=== PATIENT | male | born 1965 | race Caucasian/White ===

== ENCOUNTER 2021-10-22 05:53 | Emergency (ER) | payer MEDICARE, MEDICAID, SELFPAY ==
[2021-10-22 06:04] VITALS: BP 150/70; PULSE 101; O2SAT 98; BMI 27.3
[2021-10-22 06:13] VITALS: BP 133/77; PULSE 77; RESP 16; TEMP 36.5; O2SAT 98
--- NOTE | 2021-10-22 07:48 | ED_ITS ---
HPI - Alcohol General Chief Complaint: ETOH/Substance Use Stated Complaint: ETOH Time Seen by Provider: 10/22/21 07:43 Source: EMS Mode of arrival: ambulatory Limitations: altered mental status History of Present Illness HPI narrative: 55-year-old male brought to emergency department by ambulance for evaluation of altered mental status. The patient was found in a car in a local convenience store parking lot. Patient was unresponsive. On presentation, the patient is arousable but falls back asleep. He was unable answer questions. there is a strong odor of alcohol on his breath. The patient has not been here before and I have no other information on the patient at this time. 1506: The patient is more awake and was able to give me a history. He states that he is in a Suboxone clinic and that is the only medicine he takes. Patient states that he gets counseling through [facility] for his opiate use disorder. He states that he has a history of using oxycodone. He denied using oxycodone. He did have an empty bottle of fluolprazolam which is a roller coaster designer drugs that is not marked his but is similar to a benzodiazepine. He states he takes his medication occasionally for anxiety. Patient was also found to have a glass pipe and a crystal-like substance which is consistent with crystal methamphe tamine. This medication was confiscated by the guard in the emergency department. Related Data Allergies Allergy/AdvReac Type Severity Reaction Status Date / Time No Known Allergies Allergy Verified 10/22/21 07:48 Review of Systems Review of Systems: Yes Unobtainable due to mental status PMFSH Social History Social History Alcohol intake: current Patient Tobacco Use Status: Tobacco use Unknown Use of substances other than those prescribed or required for medical reasons: Unknown Advance Directives: No Advance Directives Information Provided: No Physical Exam ED Vital Signs: Vital Signs - 24 hr 10/22/21 06:13 10/22/21 08:36 Temperature 97.7 F Pulse Rate 77 74 Respiratory Rate 16 14 Blood Pressure 133/77 119/56 L Pulse Oximetry 98 98 Oxygen Delivery Method Room Air BMI result Body Mass Index 27.3 Const Other: Lethargic but arousable, falls back asleep after stimulation, does have a strong odor of alcohol on his breath HENMT Head: Yes normal to inspection, Yes normocephalic and Yes atraumatic Ears: external ears normal General nose exam: Normal external nose present Face and sinus: Yes normal facial exam Mouth: Normal oral and palatal mucosa present Throat: Yes posterior oropharynx normal Eyes General: appearance normal, both eyes and all related structures Neck Neck: Yes normal visual inspection, Yes no lymphadenopathy, Yes trachea midline and Yes supple Chest Chest palpation & inspection: normal inspection of the chest and normal palpation of entire chest wall Resp Effort & Inspection: normal respiratory effort and able to speak in complete sentences Auscultation: clear to auscultation bilaterally Cardio Rate: regular rate Rhythm: regular rhythm Heart sounds: S1 normal heart sound present, S2 normal heart sound present and no murmurs GI Inspection: Yes normal to inspection Palpation (GI): Soft to palpation, nontender and no guarding Auscultation: normal bowel sounds General: Yes no CVA tenderness Back/Spine/Pelvis Back: no CVA tenderness Skin General skin exam: no rashes or lesions noted Neuro Other: lethargic but arousable Extrem General: Yes normal to inspection Course Course Course Narrative: 55-year-old male who presents emergency department for evaluation of altered level of consciousness, found unresponsive in a car. The patient was found to have a bottle of a drug but has not marked in the it states (flualprazolam) which is a benzodiazepine and with a crystal like substance which I suspect is consistent with Chrismethamphetamine. The patient was placed on a laboratory monitor and O2 saturation monitor will be observed until he wakes up. I did order laboratory evaluation to include CBC, CMP, ETOH level, urine drug screen. 1515: The patient is awake and alert. He was able to drink gerardo zamzam and eating food. He did tell me that he is in a Suboxone program and get counseling through [facility] and he is trying to work on his issues. I suspect that the patient's altered mental status was related to taking a roller coaster designer drug that is similar to a benzodiazepine and and secondary to smoke crystal methamphetamine. I did offer crisis counseling and a SUDE evaluation but he states that he is getting help with his addiction through [facility]. therefore the patient will be discharged home MDM - Alcohol Lab Data Result diagrams: 10/22/21 08:21 10/22/21 08:25 Labs: Lab Results 10/22/21 10/22/21 10/22/21 Range/Units 08:21 08:21 08:25 WBC 10.9 H (4.8-10.8) X10*3/uL RBC 4.86 (4.60-5.80) X10*6/uL Hgb 15.8 (14.0-18.0) g/dl Hct 47.9 (42.0-52.0) % MCV 98.6 H (80.0-98.0) fL MCH 32.5 (27.0-33.0) pg MCHC 33.0 (31.0-36.0) g/dl RDW 13.2 (11.0-16.0) % Plt Count 328 (160-400) X10*3/uL MPV 8.8 L (9.4-12.4) fL Immature Gran % (Auto) 0.5 H (0.0-0.4) % Neut % (Auto) 72.0 (45-73) % Lymph % (Auto) 16.1 L (20-40) % Andrew % (Auto) 9.4 (2-11) % Eos % (Auto) 1.6 (0-4) % Baso % (Auto) 0.4 (0-2) % Lymph # (Auto) 1.8 (1.2-4.9) X10*3/uL Andrew # (Auto) 1.0 (0.1-1.2) X10*3/uL Eos # (Auto) 0.2 (0.0-0.4) X10*3/uL Baso # (Auto) 0.0 (0.0-0.2) X10*3/uL Abs Immat Gran (auto) 0.06 H (0.00-0.03) X10*3/uL Absolute Neuts (auto) 7.9 (2.0-8.3) x10*3/uL Absolute Nucleated RBC 0.000 (0.0-0.012) X10*3/uL Nucleated RBC % (auto) 0.0 (0.0-0.2) /100WBC Sodium 137 (135-145) mmol/L Potassium 4.4 (3.3-5.1) mmol/L Chloride 103 (96-108) mmol/L Carbon Dioxide 25 (22-29) mmol/L Anion Gap 13 (12-20) BUN 17 H (9-16) mg/dL Creatinine 1.53 H (0.5-1.4) mg/dL Estim Creat Clear Calc 53.3 Estimated GFR 48 Random Glucose 76 (60-115) mg/dL Calcium 9.0 (8.4-10.2) mg/dL Ethyl Alcohol < 10 mg/dL Discharge Plan Discharge Clinical Impression: AMS (altered mental status), Polysubstance abuse Patient Disposition: Home, Self-Care Instructions: Polysubstance Abuse (ED) Additional Instructions: Your presented to the emergency department and you were unresponsive, this is most likely caused by the flualprazoam and possibly other drugs that you used today Continue taking your Suboxone and discuss possibly increasing you dose with your Suboxone clinic provider if you are continuing to use heroin. You should follow-up with [facility] to get help with your substance use disorder. Follow-up with your doctor in 2 days. Please return to the emergency department if your symptoms get worse or if you develop any symptoms that are concerning to you.
[2021-10-22 08:30] LABS: MANUAL DIFF FLAG NO
[2021-10-22 08:33] LABS: Basophils Percent Auto 0.4 % (0-2); Eosinophils Absolute Auto 0.2 X10*3/uL (0.0-0.4); Eosinophils Percent Auto 1.6 % (0-4); Hematocrit 47.9 % (42.0-52.0); Hemoglobin 15.8 g/dl (14.0-18.0); Imm Gran Abs Auto 0.06 X10*3/uL (0.00-0.03); Imm Gran Pct Auto 0.5 % (0.0-0.4); Lymphocytes Absolute Auto 1.8 X10*3/uL (1.2-4.9); Lymphocytes Percent Auto 16.1 % (20-40); Mean Corpuscular Hemoglobin 32.5 pg (27.0-33.0); Mean Corpuscular Volume 98.6 fL (80.0-98.0); Mean Platelet Volume 8.8 fL (9.4-12.4); Monocytes Percent Auto 9.4 % (2-11); Neutrophils Absolute Auto 7.9 x10*3/uL (2.0-8.3); Platelet Count 328 X10*3/uL (160-400); Red Blood Count 4.86 X10*6/uL (4.60-5.80); Red Cell Distribution Width 13.2 % (11.0-16.0); White Blood Count 10.9 X10*3/uL (4.8-10.8)
[2021-10-22 08:36] VITALS: BP 119/56; PULSE 74; PULSE 77; RESP 14; O2SAT 98
--- NOTE | 2021-10-22 08:38 | PC.NURSE ---
Pt is asleep, awakes with tactile stimuli. Labs drawn and sent. Attempted to void and unable at this timne. Unsteady on feet with this RN, speech slurred. when pt answers, he answers appropriately. Paraphernalia found in pants and given to security. Other belongings checked by security as well. NSR on monitor. Fluids started. sat 98% on room air. Airway patent.
[2021-10-22] MEDS: 0.9 % Sodium Chloride 1,000 ML 999 ML IV (08:40)
[2021-10-22 08:59] LABS: Ethanol < 10 mg/dL
[2021-10-22 09:02] LABS: Anion Gap 13 (12-20); Blood Urea Nitrogen 17 mg/dL (9-16); Carbon Dioxide 25 mmol/L (22-29); Chloride 103 mmol/L (96-108); Creatinine Clr Calc Pharmacy 53.3; Estimated Glomerular Filt Rate 48; Glucose Random 76 mg/dL (60-115); Potassium 4.4 mmol/L (3.3-5.1); Sodium 137 mmol/L (135-145)
[2021-10-22 15:42] VITALS: BP 123/50; PULSE 75; RESP 18; TEMP 36.6; O2SAT 96
--- NOTE | 2021-10-22 17:47 | MHC.RECOVSUP ---
Recovery Support note: Patient is a 55 year old [place] speaking male who presented to [facility] ED via EMS after being found in his car with two flat tires and the smell of alcohol. This technical publications writer met with patient prior to discharge to discuss substance use and treatment options. Patient declines intervention and is focused on getting his keys and his car. [facility] reports they did not pick anyone up at [facility] this morning. Number for CPD provided to patient. Patient transported home via [employer].
== END 2021-10-22 17:55 | disposition home or self-care (01) ==
PROVIDERS: Emergency Provider Emergency Medicine Emergency Medical Services
DX: R41.82 Altered mental status, unspecified (principal); F13.10 Sedative, hypnotic or anxiolytic abuse, uncomplicated; Z71.51 Drug abuse counseling and surveillance of drug abuser; Z79.899 Other long term (current) drug therapy
CPT/HCPCS: 36415; 80048; 82077; 85025; 99284